=== PATIENT | male | born 1945 | race Caucasian/White ===

== ENCOUNTER 2019-12-02 01:52 | Day surgery (SDC) | payer MEDICARE, SELFPAY ==
[2019-12-01 09:55] VITALS: BMI 36.9
[2019-12-02] MEDS: LACTATED RINGERS 1,000 ML 150 ML IV CONT (06:52)
[2019-12-02 06:55] VITALS: BP 143/80; PULSE 90; RESP 20; TEMP 36.7; O2SAT 91; BMI 38.7
--- NOTE | 2019-12-02 07:23 | WPDANESEPPF ---
Anes - Initial Pre Proc Eval Procedure: Operation Date: 12/02/19 07:30 Proposed Procedures p Screening Colonoscopy - Ramon Ojeda MD Date/Time: 12/02/19 07:23 Surgeon: Ramon Ojeda MD Pre Op Diagnosis: hx of colon polyps Patient Data Age: 73 Gender: M Height: 6 ft 1 in Weight: 133.4 kg Last Vital Signs Temp 98.1 F 12/02/19 06:55 Pulse 90 12/02/19 06:55 Resp 20 12/02/19 06:55 BP 143/80 H 12/02/19 06:55 Pulse Ox 91 12/02/19 06:55 Allergies Allergy/AdvReac Type Severity Reaction Status Date / Time No Known Allergies Allergy Uncoded 12/02/19 07:00 Home Medications Medication Instructions Recorded Confirmed Type atorvastatin 20 mg PO DAILY 12/01/19 12/01/19 History losartan-hydrochlorothiazide 50 tablet PO DAILY 12/01/19 12/02/19 History Patient hx anesthesia problems: none Family hx anesthesia problems: none [facility] Past Medical History Medical History (Updated 12/02/19 @ 07:23 by Adán Richards MD) H/O prostate cancer Hyperlipidemia Hypertension KATHLEEN (obstructive sleep apnea) Anes - Eval Final PreProcedure Day of Procedure 12/02/19 07:23 Patient weight: obese Heart: regular rate and rhythm Lungs: clear to auscultation Airway: Mallampati scale class II Neurological: alert and oriented Last oral intake: >/= 8 hours ASA classification: III Emergent: no Anesthetic plan: proceed Anesthesia type and monitoring: general GIVS and standard monitoring Informed Consent: The patient's anesthetic plan and its attendant risks and benefits were discussed with the patient/family/POA. Questions were solicited and answers provided to the satisfaction of the patient/family/POA.
--- NOTE | 2019-12-02 08:20 | WPDGICN ---
Assessment and Plan Additional Plan This is a 73-year-old white male patient seen in evaluation at the request of Dr. Mark Moreno. Patient presents for screening colonoscopy. One year ago he had multiple colon polyps. Patient presents today for follow-up examination. His current weight appetite bowel movements are normal. He denies any blood in his stools. Past medical history is significant for elevated cholesterol and hypertension. Family history Significant his brother has had colon polyps. There is a family history of count colon cancer in mother sister brother current medications include atorvastatin and losartan. No known drug allergies. Physical exam reveals patient to be alert. Vital signs stable. HEENT exam unremarkable. Lungs are clear to auscultation and percussion. Heart is without murmur or extra sounds. Abdomen is somewhat obese. Bowel sounds are present soft nontender with no organomegaly. Digital external rectal exam normal. Impression personal history of multiple adenomatous colon polyps. Plan is for surveillance colonoscopy at relatively short interval. GI Consult Note Consult date/time: 12/02/19 08:20 HPI: Mark Jeffery is a 73 year old male [facility] Past Medical History Medical History (Updated 12/02/19 @ 07:23 by Adán Richards MD) H/O prostate cancer Hyperlipidemia Hypertension KATHLEEN (obstructive sleep apnea) Meds Home Medications and Allergies Home Medications Medication Instructions Recorded Confirmed Type atorvastatin 20 mg PO DAILY 12/01/19 12/01/19 History losartan-hydrochlorothiazide 50 tablet PO DAILY 12/01/19 12/02/19 History Allergies Allergy/AdvReac Type Severity Reaction Status Date / Time No Known Allergies Allergy Uncoded 12/02/19 07:00 Vital Signs Vital Signs - 24 hr 12/02/19 06:55 Temperature 36.7 C Pulse Rate 90 Respiratory Rate 20 Blood Pressure 143/80 H Pulse Oximetry 91
[2019-12-02 08:25] VITALS: BP 110/60; PULSE 76; RESP 15; O2SAT 95
[2019-12-02 08:35] VITALS: BP 106/59; PULSE 72; RESP 16; O2SAT 97
[2019-12-02 08:39] VITALS: BP 120/75; PULSE 71; RESP 16
== END 2019-12-02 08:48 | disposition home or self-care (01) ==
PROVIDERS: Visit Provider Internal Medicine Gastroenterology
PROC: 0DJD8ZZ Inspection of Lower Intestinal Tract, Via Natural or Artificial Opening Endoscopic (ICD-10-PCS; CPT 45378; principal; 2019-12-02 07:30)
DX: Z12.11 Encounter for screening for malignant neoplasm of colon (principal); D12.2 Benign neoplasm of ascending colon; D12.5 Benign neoplasm of sigmoid colon; D12.8 Benign neoplasm of rectum; K64.8 Other hemorrhoids; I10 Essential (primary) hypertension; E78.00 Pure hypercholesterolemia, unspecified; G47.33 Obstructive sleep apnea (adult) (pediatric); Z85.46 Personal history of malignant neoplasm of prostate; E66.9 Obesity, unspecified; Z68.38 Body mass index [BMI] 38.0-38.9, adult
CPT/HCPCS: 45385; 88305; J2704; J7120